=== PATIENT | male | born 1970 | race Caucasian/White ===

== ENCOUNTER 2019-12-31 12:27 | Emergency (ER) | payer SELFPAY ==
--- NOTE | ~2019-12-31 | XR_ITS ---
EXAMINATION: XR tibia fibula RT 2V DATE: 12/31/2019 14:42 INDICATION: Right lower leg injury. TECHNIQUE: 2 views of right tibia and fibula were obtained. COMPARISON: None. FINDINGS: Bone alignment is normal. No fracture. There is mild tricompartmental osteoarthritis of the knee. There is a soft tissue defect anterior to tibial diaphysis. IMPRESSION: 1. Mild right knee osteoarthritis. Reviewed, dictated and finalized at location A. 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
[2019-12-31 12:59] VITALS: BP 148/83; PULSE 88; RESP 18; TEMP 37.2; O2SAT 98
[2019-12-31 14:19] VITALS: BP 156/89; PULSE 80; RESP 18; TEMP 37.2; O2SAT 100
--- NOTE | 2019-12-31 14:34 | ED.GENADULT ---
HPI - General Adult General Chief complaint: Wound/Laceration Stated complaint: wound on r calf Time Seen by Provider: 12/31/19 14:16 Source: patient Mode of arrival: ambulatory Limitations: no limitations History of Present Illness HPI narrative: Patient is a 49-year-old male who presents to emergency department for evaluation of wound to the right [place] distally noting that he was wearing pants when he scraped the leg sustaining a superficial wound which has evolved into a larger wound now that is ulcerated and has purulence draining from the wound patient notes mild aching pain worse with touch and activity patient denies any fever chills nausea vomiting patient denies concern for foreign body patient notes that his tetanus is likely not up-to-date patient also notes that he has not been seen for this complaint Related Data Home Medications Medication Instructions Recorded Confirmed meloxicam 12/31/19 Allergies Allergy/AdvReac Type Severity Reaction Status Date / Time No Known Allergies Allergy Mild Verified 12/31/19 14:25 Review of Systems Review of Systems: Narrative: CONSTITUTIONAL: Denies fever, chills, or sweats. GASTROINTESTINAL: Denies abdominal pain, nausea, vomiting SKIN: Patient with ulcerated 3 cm lesion by 2 cm involving the anterior [place] above the ankle with clear drainage going down the subcutaneous tissues with surrounding swelling without lymphangitic streaking wound tracks distally when probed with a Q-tip MUSCULOSKELETAL: Denies back pain, joint pain, or myalgia. NEUROLOGIC: Denies headache, numbness, dizziness, or weakness. [facility] Past Medical History Medical History (Updated 12/31/19 @ 16:17 by Goldy Toro PA-C) Rheumatoid arthritis Social History Social History Gender identity (if verbalized by the patient): Male Exam Narrative: Exam Narrative: GENERAL: Well-appearing, well-nourished, and in no acute distress. HEAD: Normocephalic, atraumatic. EYES: PERRLA and EOMI. ENT: Nares clear, no rhinorrhea or epistaxis. Mucous membranes moist. CHEST: Clear to auscultation. No respiratory distress. No wheezes rales or rhonchi HEART: Regular rate and rhythm. No murmur heard. Normal peripheral pulses. EXTREMITIES: Normal range of motion. No edema. Patient with 3 cm x 2 cm ulcerated lesion involving the [place] that extends into the subcutaneous tissues with clear discharge able to track distally using Q-tip when exploring the wound surrounding swelling noted no lymphangitic streaking SKIN: Warm, dry, no rash. NEURO: No focal deficits. Alert and oriented x3. Cranial nerves II through XII grossly intact. Neurovascularly intact PSYCH: Normal mood and affect. Course Course Emergency Course: Patient in the room aware of case findings treatment plan and diagnosis agreeing to follow-up as directed or to return if symptoms worsen or concerns felt appropriate for outpatient reevaluation Vital Signs Vital signs: Vital Signs Temperature 99 F 12/31/19 12:59 Pulse Rate 88 12/31/19 12:59 Respiratory Rate 18 12/31/19 12:59 Blood Pressure 148/83 H 12/31/19 12:59 Pulse Oximetry 98 12/31/19 12:59 Temperature 99.0 F 12/31/19 14:19 Pulse Rate 80 12/31/19 14:19 Respiratory Rate 18 12/31/19 14:19 Blood Pressure 156/89 H 12/31/19 14:19 Pulse Oximetry 100 12/31/19 14:19 Medical Decision Making MDM Narrative Medical decision making narrative: Patient in the room aware of case findings treatment plan and diagnosis agreeing to follow-up with specialist as instructed provided with reasons to return afebrile nontoxic-appearing no distress. Patient is aware that he will likely need wound care specialty services and agrees to follow-up Vital Signs Vital Signs: Vital Signs Temperature 99 F 12/31/19 12:59 Pulse Rate 88 12/31/19 12:59 Respiratory Rate 18 12/31/19 12:59 Blood Pressure 148/83 H 12/31/19 12:59 Pu
[2019-12-31 15:13] LABS: Basophils Absolute Auto 0.1 K/mm3 (0.0-0.1); Basophils Percent Auto 1.1 % (0.2-1.2); Eosinophils Absolute Auto 0.8 K/mm3 (0-0.3); Eosinophils Percent Auto 8.9 % (0-4.4); Hematocrit 42.5 % (42.0-52.0); Hemoglobin 13.4 g/dL (14.0-18.0); Immature Granulocyte Absolute 0.02 K/mm3 (0.00-0.031); Immature Granulocyte Percent A 0.2 % (0-0.5); Lymphocytes Absolute Auto 2.19 K/mm3 (0.9-3.2); Lymphocytes Percent Auto 23.5 % (18.3-44.2); Mean Corpuscular HGB Conc 31.5 g/dl (32-36); Mean Corpuscular Hemoglobin 28.9 pg (26-34); Mean Corpuscular Volume 91.8 fl (80-100); Mean Platelet Volume 9.4 fl (7.4-10.4); Monocytes Absolute Auto 0.7 K/mm3 (0.1-0.6); Monocytes Percent Auto 7.1 % (2.6-8.5); Neutrophils Absolute Auto 5.5 K/mm3 (1.3-6.7); Neutrophils Percent Auto 59.2 % (45.5-73.1); Platelet Count Result 403 k/mm3 (150-375); Red Blood Count 4.63 M/mm3 (4.6-6.20); Red Cell Distribution Width 12.9 % (11.5-14.5); White Blood Count 9.3 K/mm3 (4.5-10.0)
[2019-12-31] MEDS: ceFAZolin 2 GM/D5W 50 ML 2 GM/50 ML BAG IVPB (15:14)
[2019-12-31] MEDS: TETANUS,DIPHTHERIA,AC PERTUSSIS ADULT 0.5 ML (ADACEL) IM (15:15)
[2019-12-31] MEDS: SODIUM CHLORIDE 0.9% IV 1,000 ML 999 ML IV CONT (15:15)
[2019-12-31 15:25] LABS: Blood Urea Nitrogen 9 mg/dL (9-20); Calcium 9.2 mg/dL (8.4-10.2); Carbon Dioxide 30 mmol/L (22-30); Chloride 100 mmol/L (98-107); Estimated CRCL calculation 106 ml/min; Estimated Glomerular Filt Rate > 60; Glucose 94 mg/dL (75-110); Potassium 4.4 mmol/L (3.4-5.0); Sodium 140 mmol/L (137-145)
[2019-12-31 17:32] VITALS: BP 140/73; PULSE 73; RESP 18; O2SAT 100
--- NOTE | 2020-01-06 07:19 | PC.NURSE ---
LATE ENTRY This note is being entered to document information to the patient's record. The following information was omitted on 12/31/2019, by Shannon Nelson RN. IV cefazolin stopped [id number] and NS stopped at 1530.
== END 2019-12-31 17:20 | disposition home or self-care (01) ==
PROVIDERS: Emergency Medicine Emergency Medical Services; Emergency Provider Emergency Medicine
DX: S85.811A Laceration of other blood vessels at lower leg level, right leg, initial encounter (principal); W22.8XXA Striking against or struck by other objects, initial encounter; M06.9 Rheumatoid arthritis, unspecified; Z23 Encounter for immunization
CPT/HCPCS: 36415; 73590; 80048; 85025; 87070; 87075; 87076; 87147; 87186; 87205; 90471; 90715; 96374; 99284; J0690; J7030

== ENCOUNTER 2024-11-09 14:34 | Outpatient (CLI) | payer OTHER, SELFPAY ==
--- NOTE | ~2024-11-09 | XR_ITS ---
EXAMINATION: XR lumbar spine min 4V DATE: 11/09/2024 15:08 INDICATION: Low back and lower extremity pain. TECHNIQUE: 5 views of lumbar spine including standing views and flexion and extension views were obta ined. COMPARISON: Lumbar spine radiographs 08/24/2010 FINDINGS: There is 15 degrees dextroscoliosis of thoracolumbar spine. There is 3 mm anterolisthesis o f L4 on L5. There are changes of anterior and posterior fusion procedures at L5-S1 with interbody dev ice and pedicle screws. Vertebral body heights are normal. There is mildly decreased disc height at L 1-L2 and severely decreased disc height at L3-L4 and L4-L5. There is multilevel facet joint osteoarth ritis, severe in lower lumbar spine. The spine is hypomobile with flexion and extension. IMPRESSION: 1. Severe lumbar spondylosis, worsened from 08/27/2010. 2. Anterior and posterior fusion procedures at L5-S1. 3. Thoracolumbar dextroscoliosis. Reviewed, dictated and finalized at location [] [employer]
== END 2024-11-09 14:35 | disposition home or self-care (01) ==
PROVIDERS: PCP Neurological Surgery; Visit Provider Neurological Surgery
DX: M47.816 Spondylosis without myelopathy or radiculopathy, lumbar region (principal); Z98.1 Arthrodesis status; M41.85 Other forms of scoliosis, thoracolumbar region; M51.361 Other intervertebral disc degeneration, lumbar region with lower extremity pain only
CPT/HCPCS: 72110